=== PATIENT | male | born 1975 | race Caucasian/White ===

== ENCOUNTER 2019-07-19 21:18 | Emergency (ER) | payer BC ==
[~2019-07-19] VITALS: Ht 193 cm; Wt 86.2 kg
--- NOTE | 2019-07-19 21:30 | NUR ---
Dr. Ortega at bedside for MSE.
--- NOTE | 2019-07-19 21:33 | NUR ---
Glenn chaney in ED - 07/19/19 at [address] Ortega at [facility] for MSE.
--- NOTE | 2019-07-19 21:36 | NUR ---
Xray at bedside.
[2019-07-19] MEDS ORDERED: LIDOCAINE HCL 1% 20 ML VIAL IJ ONE (22:30)
--- NOTE | 2019-07-19 22:49 | NUR ---
Patient discharged to home in stable conditon. Written and verbal after care instructions given. Patient verbalizes understanding of instructions. Pt ambulated out of ER with steady gait, no acute signs of distress, VSS, all belongings taken.
[2019-07-19 23:05] VITALS: BP 120/74
== END 2019-07-19 23:06 | disposition home or self-care (01) ==
LOC: ER 21:18
DX: S61.411A Laceration without foreign body of right hand, initial encounter (principal); W26.8XXA Contact with other sharp object(s), not elsewhere classified, initial encounter; Y93.89 Activity, other specified; Y92.89 Other specified places as the place of occurrence of the external cause; Y99.8 Other external cause status
CPT/HCPCS: 12002; 73130; 99283; J3490; A4217; A4663